=== PATIENT | male | born 1980 | race African-American/Black ===

== ENCOUNTER 2024-03-30 23:34 | Emergency (ER) | payer SELFPAY ==
[~2024-03-30] VITALS: Ht 177.8 cm; Wt 71.7 kg
[2024-03-30 23:39] VITALS: BP 121/71; PULSE 96; RESP 16; TEMP 100.3; O2SAT 98
[2024-03-30 23:58] VITALS: TEMP 101.3
[2024-03-31] MEDS: KETOROLAC 30 MG/ML VIAL IVP ONE (00:17)
[2024-03-31 00:19] LABS: BILIRUBIN,URINE NEGATIVE (NEGATIVE); BLOOD, URINE 3+ (NEGATIVE); COLOR,URINE YELLOW (YELLOW); LEUKOCYTE ESTERASE ,URINE 2+ (NEGATIVE); NITRITE, URINE POSITIVE (NEGATIVE); PROTEIN,URINE 1+ (NEGATIVE); UGLUCOSE NEGATIVE (NEGATIVE); UROBILINOGEN,URINE 0.2 EU/dL (0.2 - 1)
[2024-03-31 00:21] LABS: APPEARANCE,URINE SLIGHTLY HAZY (CLEAR)
[2024-03-31] MEDS: ONDANSETRON 4 MG/2 ML VIAL IVP ONE (00:22)
[2024-03-31] MEDS: NACL 0.9% 1,000 ML IV SCH (00:22)
[2024-03-31 00:31] LABS: BACTERIA,URINE 3+ /HPF (None Seen); MUCUS,URINE 1+ /LPF (None Seen); RBC,URINE 11-20 (MOD) /HPF (0-5); SQUAMOUS EPITHELIAL CELL,UR 0-3 (FEW) /LPF (0-3 (FEW)); WBC,URINE TOO MANY TO COUNT /HPF (0-5)
[2024-03-31 00:55] LABS: BASOPHILS # (AUTO) 0.1 K/uL (0.00-0.22); BASOPHILS % (AUTO) 0.6 % (0.0-2.0); EOSINOPHILS % (AUTO) 0.1 % (0.0-4.0); HEMATOCRIT 33.4 % (36-52); HEMOGLOBIN 11.4 g/dL (12.0-18.0); LYMPHOCYTES # (AUTO) 1.6 K/uL (2.0-11.5); LYMPHOCYTES % (AUTO) 10.7 % (20.5-51.1); MEAN CORPUSCULAR HEMOGLOBIN 32 pg (27-31); MEAN CORPUSCULAR HGB CONC 34 g/dL (33-37); MEAN CORPUSCULAR VOLUME 92.7 fL (80-94); MONOCYTES # (AUTO) 1.5 K/uL (0.8-1.0); MONOCYTES % (AUTO) 10.1 % (1.7-9.3); NEUTROPHILS # (AUTO) 11.5 K/uL (1.8-7.7); NEUTROPHILS % (AUTO) 78.5 % (42.2-75.2); PLATELET COUNT (AUTO) 301 K/uL (140-450); RED CELL DISTRIBUTION WIDTH 14.6 % (11.6-13.7); WHITE BLOOD COUNT (AUTO) 14.6 K/uL (4.8-10.8)
[2024-03-31] MEDS ORDERED: cefTRIAXone 1,000 MG VIAL ONE (00:59)
[2024-03-31 01:01] LABS: ANION GAP 15.1 (8-16); CALCIUM 8.7 mg/dL (8.5-10.1); CARBON DIOXIDE 23.6 mmol/L (21-32); CREATININE 0.8 mg/dL (0.6-1.3); POTASSIUM 3.7 mmol/L (3.5-5.1)
[2024-03-31 01:04] LABS: ALBUMIN 3.3 g/dL (3.4-5.0); BILIRUBIN,DIRECT 0.2 mg/dL (0.0-0.3); TOTAL BILIRUBIN 0.6 mg/dL (0.0-1.0); TOTAL PROTEIN, SERUM 6.9 g/dL (6.4-8.2)
[2024-03-31] MEDS: ACETAMINOPHEN EXTRA STRENGTH 500 MG TAB PO ONE (01:10)
[2024-03-31] MEDS: NACL 0.9% 1,000 ML IV ONE (01:26)
[2024-03-31] MEDS ORDERED: NAPR-337 PO (01:53)
[2024-03-31] MEDS ORDERED: DOXY-690 PO (01:53)
[2024-03-31] MEDS ORDERED: SULF-58 PO (01:53)
[2024-03-31 02:07] VITALS: BP 104/59; PULSE 69; RESP 16; O2SAT 98
== END 2024-03-31 02:06 | disposition home or self-care (01) ==
LOC: MED 23:34
DX: N45.1 Epididymitis (principal); Z79.899 Other long term (current) drug therapy
CPT/HCPCS: 36415; 74176; 76870; 80048; 80076; 81001; 83690; 85025; 87086; 87186; 96365; 96375; 99285; J0696; J1885; J2405; J7030; 99284